=== PATIENT | female | born 2000 | race Two or more races ===

== ENCOUNTER 2018-07-05 16:03 | Emergency (ER) | payer OTHER ==
[~2018-07-05] VITALS: Ht 152.4 cm; Wt 63.0 kg
== END 2018-07-05 18:14 | disposition home or self-care (01) ==
LOC: ER 16:03
DX: S90.01XA Contusion of right ankle, initial encounter (principal); W18.39XA Other fall on same level, initial encounter; Y93.89 Activity, other specified; Y92.69 Other specified industrial and construction area as the place of occurrence of the external cause; Y99.8 Other external cause status